=== PATIENT | female | born 1980 | race African-American/Black ===

== ENCOUNTER 2023-05-09 14:13 | Emergency (ER) | payer MEDICARE, MEDICAID ==
[~2023-05-09] VITALS: Ht 172.7 cm; Wt 63.0 kg
[~2023-05-09 14:13] MED LIST: METH50TA5 PO; NEOMYCIN RIGHTEYE; PRED5DRO7 EACHEYE; VITAMIN D PO; [UNRECOGNIZED DRUG - OTHER] RIGHTEYE
[2023-05-09 14:19] VITALS: BP 134/82; PULSE 99; RESP 20; TEMP 98.2; O2SAT 100
[2023-05-09] MEDS ORDERED: ACETAMINOPHEN 325MG TABLET PO ONE (15:15)
[2023-05-09] MEDS ORDERED: LIDOCAINE HCL 1% 20ML VIAL (Pyxis) INJ INFIL ONE (15:15)
[2023-05-09] MEDS ORDERED: SULF1TAB48 MT (18:42)
[2023-05-09] MEDS ORDERED: LIDO30GE4 TP (18:42)
== END 2023-05-09 21:34 | disposition home or self-care (01) ==
LOC: ER 14:30
DX: M79.645 Pain in left finger(s) (principal); Z98.890 Other specified postprocedural states; Z79.899 Other long term (current) drug therapy
CPT/HCPCS: 73140; 81025; 99283